=== PATIENT | male | born 1970 | race Caucasian/White ===

== ENCOUNTER 2018-07-27 04:19 | Inpatient (IN) | payer MEDICAID, OTHER ==
[~2018-07-27] VITALS: Ht 175.3 cm; Wt 63.5 kg
[2018-07-27] VITALS (7 sets, daily range): BP systolic 109–152; BP diastolic 62–95
--- NOTE | 2018-07-27 04:30 | NUR ---
ED Nurse Note: Pt arrived ED from home, c/o abdominal pain today, pain 8/10. Pt is A/O x4, vital signs stable at this time. Dr. Gerber at bed side, waiting for orders.
--- NOTE | 2018-07-27 04:34 | Emergency Room Report ---
History of Present Illness General Chief Complaint: Abdominal Pain Source: Friend Present Illness HPI Patient is a 47-year-old male presented after increased bilateral lower abdominal pain. Patient was noted to have worsening symptoms over the past 2 weeks. He denies any current medications for HIV but had prior history. Patient states he is currently taking Diflucan for thrush. Reports having increased generalized lower abdominal pain associated with some bilateral flank pain. Allergies: Coded Allergies: No Known Allergies (Unverified , 07/27/18) Patient History Past Medical History: see triage record Reviewed Nursing Documentation: PMH: Agreed; PSxH: Agreed Nursing Documentation-PMH Past Medical History: No History, Except For Hx Neurological Problems: No - Hip replacement Review of Systems All Other Systems: limited Physical Exam Sp02 EP Interpretation: reviewed, normal General Appearance: normal inspection, well appearing, no apparent distress, alert, GCS 15, Chronically Ill Head: atraumatic ENT: normal ENT inspection, hearing grossly normal, normal voice Neck: normal inspection, full range of motion, supple, no bony tend Respiratory: normal inspection, lungs clear, normal breath sounds, no respiratory distress, no retraction, no wheezing Cardiovascular #1: regular rate, rhythm, no edema Gastrointestinal: normal inspection, normal bowel sounds, non tender, soft, no guarding, no hernia Genitourinary: no CVA tenderness Musculoskeletal: decreased range of motion Neurologic: normal inspection, alert, responsive, speech normal Psychiatric: normal inspection, judgement/insight normal, mood/affect normal Skin: normal inspection, normal color, no rash Medical Decision Making ER Course Patient presented for abdominal pain. Differential diagnoses included ischemic bowel, appendicitis, perforated viscus, abdominal aortic aneurysm, inferior myocardial infarction, viral gastroenteritis among others. Because of complexity of patient's case laboratory testing and imaging studies were ordered.Laboratory testing was notable for some mild leukopenia. Patient was also noted to have hypocalcemia. Patient was given IV fluids. Labs Test 07/27/18 04:45 07/27/18 04:47 White Blood Count 3.2 K/UL (4.8-10.8) Red Blood Count 3.42 M/UL (4.70-6.10) Hemoglobin 13.2 G/DL (14.2-18.0) Hematocrit 31.1 % (42.0-52.0) Mean Corpuscular Volume 91 FL (80-99) Mean Corpuscular Hemoglobin 38.6 PG (27.0-31.0) Mean Corpuscular Hemoglobin Concent 42.4 G/DL (32.0-36.0) Red Cell Distribution Width 12.9 % (11.6-14.8) Platelet Count 166 K/UL (150-450) Mean Platelet Volume 6.5 FL (6.5-10.1) Neutrophils (%) (Auto) % (45.0-75.0) Lymphocytes (%) (Auto) % (20.0-45.0) Monocytes (%) (Auto) % (1.0-10.0) Eosinophils (%) (Auto) % (0.0-3.0) Basophils (%) (Auto) % (0.0-2.0) Sodium Level 142 MMOL/L (136-145) Potassium Level 3.5 MMOL/L (3.5-5.1) Chloride Level 109 MMOL/L (98-107) Carbon Dioxide Level 24 MMOL/L (21-32) Anion Gap 9 mmol/L (5-15) Blood Urea Nitrogen 14 mg/dL (7-18) Creatinine 0.8 MG/DL (0.55-1.30) Estimat Glomerular Filtration Rate > 60 mL/min (>60) Glucose Level 133 MG/DL (74-106) Calcium Level 7.7 MG/DL (8.5-10.1) Magnesium Level 1.9 MG/DL (1.8-2.4) Total Bilirubin 0.7 MG/DL (0.2-1.0) Aspartate Amino Transf (AST/SGOT) 5 U/L (15-37) Alanine Aminotransferase (ALT/SGPT) < 6 U/L (12-78) Alkaline Phosphatase 115 U/L (46-116) Troponin I 0.015 ng/mL (0.000-0.056) Total Protein 8.3 G/DL (6.4-8.2) Albumin 3.2 G/DL (3.4-5.0) Globulin 5.1 g/dL Lipase 373 U/L (73-393) EKG Diagnostic Results Rate: normal Rhythm: NSR ST Segments: no acute changes Jt Gerber MD Jul 27, 2018 04:34
[2018-07-27] MEDS ORDERED: Morphine Sulfate 4mg/ml Inj (IV/IM USE ONLY) IVP ONE (04:45)
[2018-07-27] MEDS ORDERED: Isovue-300 100ml vial INJ PRN (04:45)
[2018-07-27] MEDS ORDERED: Dicyclomine HCl 10mg/5ml oral soln ORAL ONE (04:45)
--- NOTE | 2018-07-27 04:50 | NUR ---
ED Nurse Note: Blood and urine sample collected and sent to lab.
--- NOTE | 2018-07-27 05:01 | NUR ---
ED Nurse Note: Pain Meds given as ordered.
[2018-07-27 05:22] LABS: HEMATOCRIT 31.1 % (42.0-52.0); HEMOGLOBIN 13.2 G/DL (14.2-18.0); MEAN CORPUSCULAR VOLUME 91 FL (80-99); PLATELET COUNT 166 K/UL (150-450); RED BLOOD COUNT 3.42 M/UL (4.70-6.10); RED CELL DISTRIBUTION WIDTH 12.9 % (11.6-14.8); WHITE BLOOD COUNT 3.2 K/UL (4.8-10.8)
[2018-07-27 05:33] LABS: APPEARANCE,URINE CLEAR; BILIRUBIN, URINE NEGATIVE (NEGATIVE); COLOR,URINE PALE YELLOW; GLUCOSE, URINE (UA) NEGATIVE (NEGATIVE); KETONES,URINE NEGATIVE (NEGATIVE); LEUKOCYTE ESTERASE ,URINE NEGATIVE (NEGATIVE); NITRITE,URINE NEGATIVE (NEGATIVE); PH,URINE 6 (4.5-8.0); PROTEIN,URINE NEGATIVE (NEGATIVE); UROBILINOGEN,URINE NORMAL MG/DL (0.0-1.0)
[2018-07-27 05:38] LABS: ANION GAP 9 mmol/L (5-15); BLOOD UREA NITROGEN 14 mg/dL (7-18); CALCIUM 7.7 MG/DL (8.5-10.1); CARBON DIOXIDE 24 MMOL/L (21-32); CHLORIDE 109 MMOL/L (98-107); CREATININE 0.8 MG/DL (0.55-1.30); POTASSIUM 3.5 MMOL/L (3.5-5.1); SODIUM 142 MMOL/L (136-145)
[2018-07-27 05:42] LABS: ALANINE AMINOTRANSFERASE < 6 U/L (12-78); ALBUMIN 3.2 G/DL (3.4-5.0); ALKALINE PHOSPHATASE 115 U/L (46-116); ASPARTATE AMINO TRANSFERASE 5 U/L (15-37); BILIRUBIN,TOTAL 0.7 MG/DL (0.2-1.0)
--- NOTE | 2018-07-27 06:05 | NUR ---
ED Nurse Note: Pt was sent down for CT.
[2018-07-27 07:02] LABS: INR 0.9 (0.9-1.1)
--- NOTE | 2018-07-27 07:20 | NUR ---
HAND-OFF: Report given to Jnah/RN for continue care.
[2018-07-27] MEDS ORDERED: Miralax 17gm pkt ORAL PRN (07:30)
[2018-07-27] MEDS ORDERED: Metoclopramide 10mg/2ml Inj IVP PRN (07:30)
[2018-07-27] MEDS ORDERED: Promethazine HCl 25 MG in NS 55 ML IV PRN (07:30)
[2018-07-27] MEDS ORDERED: LORazepam Inj 2mg/ml 1ml IV PRN (07:30)
[2018-07-27] MEDS ORDERED: Mylanta II UD 30ml ORAL PRN (07:30)
[2018-07-27] MEDS ORDERED: Promethazine HCl 12.5 MG in NS 55 ML IV PRN (07:30)
[2018-07-27] MEDS ORDERED: Nitroglycerin Subl 0.4mg tab SL PRN (07:30)
--- NOTE | 2018-07-27 07:45 | NUR ---
ED Nurse Note: Received pt in bed. pt aao x4 and requested to go to bathroom alone. pt has unsteady gait so assisted with urinal and urinated pale yellow urine in urinal at bedside. skin intact, c/o abdominal pain 4/10 but able to tolerate without medication per pt. VSS and no s/s of cardiac or pulmonary distress.
--- NOTE | 2018-07-27 08:31 | NUR ---
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 currently. primary rn and pharmacy notified.
--- NOTE | 2018-07-27 08:40 | NUR ---
ED Nurse Note: pt was transferred to inpatient bed in ER by 1 coding tech and 1 RN.
[2018-07-27] MEDS: D5 1/2NS 1,000 ML IV SCH ×2 (08:43→20:35)
--- NOTE | 2018-07-27 08:43 | NUR ---
ED Nurse Note: D5 1/2 NS order has been verified and initianted.
[2018-07-27] MEDS: Pantoprazole Inj IV SCH (08:50)
[2018-07-27] MEDS: Heparin 5000 units/ml inj SUBQ SCH ×2 (08:52→20:36)
--- NOTE | 2018-07-27 08:58 | NUR ---
ED Nurse Note: pt requested a cup of water and informed that pt is NPO and verbalized understanding.
--- NOTE | 2018-07-27 09:57 | Diagnostic Imaging Report ---
Indication: Abdominal pain Technique: Continuous helical transaxial imaging of the abdomen and pelvis was obtained from the lung bases to the pubic symphysis during intravenous contrast administration. Coronal 2-D reformats were also obtained. Study obtained in a Siemens sensation [address] Automatic Exposure Control was utilized. Total Dose length Product (DLP): 513.[address] Dose Index Volume (CTDIvol): 10.48 mGy Comparison: None Findings: Lung bases are clear. There is a small hiatal hernia. Liver and spleen are unremarkable. Pancreas unremarkable. Kidneys and gallbladder are unremarkable. There are tiny bilateral renal cysts are demonstrated. Appendix is normal. Left total hip prosthetic noted. The right femoral head is abnormal with subchondral lucencies, deformity of the femoral head collapse. Findings suspicious for advanced AVN. Correlate clinically. Note the preliminary reading stated some suspicion of biliary disease dilatation. Correlate clinically and evaluate further as needed. IMPRESSION: No acute findings. Advance AVN of the right hip. Left hip prosthesis. Tiny bilateral renal cysts. Question of a CBD dilatation. Correlate clinically and evaluate further as needed The CT scanner at [facility] is accredited by the [employer] and the scans are performed using dose optimization techniques as appropriate to a performed exam including Automatic Exposure control.
--- NOTE | 2018-07-27 10:24 | NUR ---
ED Nurse Note: pt c/o severe abdominal pain 7/10 and 2mg of morphine ivp was given.
[2018-07-27] MEDS: Morphine Sulfate 2mg/ml Inj IVP PRN ×2 (10:27→15:36)
--- NOTE | 2018-07-27 13:02 | Consultation ---
History of Present Illness General Date patient seen: Jul 27, 2018 Chief Complaint: Abdominal Pain Reason for Consultation: HIV Present Illness HPI Mr. Waller is a 47 yo male with PMHx of HIV off meds who presented to the ED on 07/27/18 with abdominal pain. He reports that the pain has been present for about 2 months. It is burning in nature with intermittent sharp moments. It feel superficial like it is in his skin or nerve. The pain has been getting worse. It is not associated with any thing that he can think of. He has no n/v/d /c or abdominal pain, No dysuria, no hematuria, No SOB, no cp. No bleeding. He has been off his HIV meds for about 2 years last CD4 count that he remembers was 50 (not sure when it was done. He has been on fluconazole for thrush. When to [facility]. They gave him genvoya and bactrim. He has not taken either. In the ED he was found to be afebrile and to have no leukocytosis. He had a CT scan of his abdomen it show possible CBC dilatation but no acute findings. ID consulted for HIV PMHx/PSHx HIV Left hip prosthesis SocHx Has not been sexually active for years Homeless FamHx Not contributory Allergies: Coded Allergies: No Known Allergies (Unverified , 07/27/18) Medication History No Active Prescriptions or Reported Meds Patient History Healthcare decision maker Resuscitation status Advanced Directive on File Review of Systems ROS Narrative 12 point ROS negative except as note in the HPI. Physical Exam Last 24 Hour Vital Signs Date Time Temp Pulse Resp B/P (MAP) Pulse Ox O2 Delivery O2 Flow Rate FiO2 07/27/18 11:31 Room Air 07/27/18 11:28 98.1 92 16 109/79 100 Room Air 07/27/18 10:57 98.3 07/27/18 09:41 82 07/27/18 09:31 Room Air 07/27/18 07:44 98.3 92 22 126/92 100 Room Air 07/27/18 05:30 97.0 07/27/18 04:30 91 14 Room Air 07/27/18 04:30 97.5 91 14 132/95 98 Room Air 07/27/18 04:19 97.0 91 14 133/94 98 Room Air Intake and Output 07/26/18 07/27/18 18:59 06:59 Intake Total 600 ml Output Total 120 ml Balance 480 ml Intake Oral 100 ml IV Total 500 ml Output Urine Total 120 ml Laboratory Tests Test 07/27/18 04:45 07/27/18 04:47 Urine Color Pale yellow Urine Appearance Clear Urine pH 6 (4.5-8.0) Urine Specific [place] 1.020 (1.005-1.035) Urine Protein Negative (NEGATIVE) Urine Glucose (UA) Negative (NEGATIVE) Urine Ketones Negative (NEGATIVE) Urine Blood Negative (NEGATIVE) Urine Nitrite Negative (NEGATIVE) Urine Bilirubin Negative (NEGATIVE) Urine Urobilinogen Normal MG/DL (0.0-1.0) Urine Leukocyte Esterase Negative (NEGATIVE) White Blood Count 3.2 K/UL (4.8-10.8) L Red Blood Count 3.42 M/UL (4.70-6.10) L Hemoglobin 13.2 G/DL (14.2-18.0) L Hematocrit 31.1 % (42.0-52.0) L Mean Corpuscular Volume 91 FL (80-99) Mean Corpuscular Hemoglobin 38.6 PG (27.0-31.0) H Mean Corpuscular Hemoglobin Concent 42.4 G/DL (32.0-36.0) H Red Cell Distribution Width 12.9 % (11.6-14.8) Platelet Count 166 K/UL (150-450) Mean Platelet Volume 6.5 FL (6.5-10.1) Neutrophils (%) (Auto) % (45.0-75.0) Lymphocytes (%) (Auto) % (20.0-45.0) Monocytes (%) (Auto) % (1.0-10.0) Eosinophils (%) (Auto) % (0.0-3.0) Basophils (%) (Auto) % (0.0-2.0) Prothrombin Time 9.9 SEC (9.30-11.50) Prothromb Time International Ratio 0.9 (0.9-1.1) Activated Partial Thromboplast Time 27 SEC (23-33) Sodium Level 142 MMOL/L (136-145) Potassium Level 3.5 MMOL/L (3.5-5.1) Chloride Level 109 MMOL/L (98-107) H Carbon Dioxide Level 24 MMOL/L (21-32) Anion Gap 9 mmol/L (5-15) Blood Urea Nitrogen 14 mg/dL (7-18) Creatinine 0.8 MG/DL (0.55-1.30) Estimat Glomerular Filtration Rate > 60 mL/min (>60) Glucose Level 133 MG/DL (74-106) H Calcium Level 7.7 MG/DL (8.5-10.1) L Magnesium Level 1.9 MG/DL (1.8-2.4) Total Bilirubin 0.7 MG/DL (0.2-1.0) Aspartate Amino Transf (AST/SGOT) 5 U/L (15-37) L Alanine Aminotransferase (ALT/SGPT) < 6 U/L (12-78) L Alkaline Phosphatase 115 U/L (46-116) Troponin I 0.015 ng/mL (0.000-0.056) Total Protein 8.3 G/DL (6.4-8.2) H Albumin 3.2 G/DL (3.4-5.0) L Globulin 5.1 g/dL Lipase 373 U/L (73-393) Height (Feet): 5 Height (Inches): 9.00 Weight (Pounds): 140 Medications Current Medications Medications (Trade) Dose Ordered Sig/Danny Route PRN Reason Start Time Stop Time Status Last Admin Dose Admin Acetaminophen (Tylenol) 650 mg Q4H PRN ORAL fever 07/27/18 07:30 08/26/18 07:29 Al Hydroxide/Mg Hydroxide (Mylanta II) 30 ml Q6H PRN ORAL dyspepsia 07/27/18 07:30 08/26/18 07:29 Dextrose (Dextrose 50%) 25 ml Q30M PRN IV Hypoglycemia 07/27/18 07:30 08/26/18 07:29 Dextrose (Dextrose 50%) 50 ml Q30M PRN IV Hypoglycemia 07/27/18 07:30 08/26/18 07:29 Dextrose/Sodium Chloride 1,000 ml @ 75 mls/hr [id number] IV 07/27/18 07:17 08/26/18 07:16 07/27/18 08:43 Diphenhydramine HCl (Benadryl) 25 mg Q6H PRN ORAL Itching/Pruritis 07/27/18 07:30 08/26/18 07:29 Heparin Sodium (Porcine) (Heparin 5000 units/ml) 5,000 units EVERY 12 HOURS SUBQ 07/27/18 09:00 08/26/18 08:59 07/27/18 08:52 Iopamidol (Isovue-300 100ml) 100 ml NOW PRN INJ Radiology Procedure 07/27/18 04:45 Lorazepam (Ativan 2mg/ml 1ml) 1 mg Q4H PRN IV agitation 07/27/18 07:30 08/03/18 07:29 Metoclopramide HCl (Reglan) 10 mg Q6H PRN IVP servere nauasea 07/27/18 07:30 08/26/18 07:29 Morphine Sulfate (Morphine Sulfate) 2 mg Q4H PRN IVP severe Pain (Pain Scale 7-10) 07/27/18 07:30 08/03/18 07:29 07/27/18 10:27 Nitroglycerin (Ntg) 0.4 mg Q5M X 3 DOSES PRN SL Prn Chest Pain 07/27/18 07:30 08/26/18 07:29 Ondansetron HCl (Zofran) 4 mg Q6H PRN IVP Nausea & Vomiting 07/27/18 07:30 08/26/18 07:29 Pantoprazole (Protonix) 40 mg DAILY IV 07/27/18 09:00 08/26/18 08:59 07/27/18 08:50 Polyethylene Glycol (Miralax) 17 gm HSPRN PRN ORAL Constipation 07/27/18 07:30 08/26/18 07:29 Promethazine HCl (Phenergan) 25 mg Q6H PRN IM REFRACTORY N/V 07/27/18 08:30 08/26/18 08:29 Temazepam (Restoril) 15 mg HSPRN PRN ORAL Insomnia 07/27/18 07:30 08/03/18 07:29 Objective Narrative Gen: NAD, Thin male HEENT: NCAT, MMM, EOMI, PERRL, oral thrush, no scleral icterus NECK: full range of motion, supple, no meningismus, No LAD, No JVD LUNGS: CTAB, No W/C, No Accessory muscle use CARDS: RRR, S1, S2, No M/R/G, ABD: Soft, NT, ND, No R/G, + BS, No HSM, No Masses : Deferred Ext: C/C/E, Pulses 2+ B/L (DP, Rad): NEURO: A/O x 4, Strength and Sensation Grossly intact PSYCH: Mood/affect normal SKIN: Warm/dry, No rashes Assessment/Plan Assessment/Plan 47 yo male with PMHx of HIV off meds who presented to the ED on 07/27/18 with abdominal pain. Abdominal burning Infection unlikely - Nerve pains? HIV? CT essentially negative for intraabdominal process CT Abd/Pel 07/27/18 - No acute findings. Advance AVN of the right hip. Left hip prosthesis. Tiny bilateral renal cysts. Question of a CBD dilatation. Correlate clinically and evaluate further as needed No leukocytosis No fevers No diarrhea or constipation HIV Dx 2002 Last CD4 about 50, Unknown VL - Off meds for over 2 year - [facility] Oral thrush On fluconazole AVN right hip Left hip prosthesis PLAN - Monitor clinically for improvement of abdominal pain - Continue Bactrim DS Qday for PPx - Continue fluconazole for thrush - f/u cultures - check GC/Ch in urine - monitor CBC and Temps Thank you for this consult. We will continue to follow the patient during this hospitalization. Joey Mattson MD Jul 27, 2018 13:02
--- NOTE | 2018-07-27 13:07 | Diagnostic Imaging Report ---
Indication:Abdominal pain Technique: Grayscale and duplex Doppler imaging of the abdomen performed. Comparison: None Findings: The liver is unremarkable. The gallbladder is contracted and not evaluated well. Tiny cyst in the right kidney measuring 7 mm noted. The demonstrated part of the pancreas, aorta and IVC show no abnormalities. Both kidneys appear unremarkable. The spleen is normal in size. There is no biliary ductal dilatation identified. Doppler evaluation of the main portal vein shows patency. There is no ascites. No hydronephrosis seen. CBD is 5 mm Impression: No acute findings. Tiny right renal cyst. Gallbladder contracted and not evaluated well
--- NOTE | 2018-07-27 14:44 | NUR ---
ED Nurse Note: attempted giving report, unable to give report at this time per charge nurse, no nurse can take pt at this time.
[2018-07-27] MEDS ORDERED: Bactrim-DS 1 tab ORAL SCH (15:00)
[2018-07-27] MEDS ORDERED: Fluconazole 100mg tab ORAL SCH (15:00)
--- NOTE | 2018-07-27 15:03 | NUR ---
ED Nurse Note: GAURAV Tinoco received report. pt is ready to be transferred.
--- NOTE | 2018-07-27 15:09 | NUR ---
ED Nurse Note: pt left department with 1 warehousing technician and 1 RN in stable condition.
--- NOTE | 2018-07-27 15:25 | NUR ---
NURSE NOTES: Pt was admitted to Tele from ER via hospital bed. Tele monitor placed on pt, displays NSR. Received report from Darrius NOLASCO over the phone, immediately prior to pt's arrival. Pt is awake, alert, oriented x4, on room air with no respiratory distress, reports chronic moderate to severe pain in the lower abdominal region, which pt's states has been present for a few months now, recently the pain has progressively worsened per pt, will administer next PRN morphine as ordered by Dr Metcalf. Skin is intact, with old healed scar from status post left hip replacement. IV access on left AC #20G infusing D5 0.45% NS at 75mL/hr. Admission orders in place by Dr Metcalf. Pt's belonging's list checked with the transferring nurse in front of the pt. Call light is placed within easy reach, bed in lowest position, two side rails up, brakes engaged, urinal at bedside. Pt is placed on NPO per MD. Pt is inquiring about receiving a meal, explained to pt the NPO order, pending diet advancement by Dr Metcalf, pt verbalized understanding. Addendum: 07/27/18 at 1752 by JAYLA CHAVEZ RN Pt states he was given assistive devices for ambulation, however he has misplaced them, and therefore has not used any assistive devices for a while. On continuous Morphine for severe pain, pt is weak and unsteady, placed on fall precaution.
--- NOTE | 2018-07-27 17:45 | History and Physical Report ---
DATE OF ADMISSION: 07/27/2018 TIME SEEN: 1 p.m. CONSULTANTS: 1. Serjio Bustillos M.D. 2. Benji Maldonado M.D. 3. Matthias Bianchi M.D. 4. Bunny Cartagena M.D. CHIEF COMPLAINT: Abdominal pain, weakness, HIV, leukopenia, and hypocalcemia. BRIEF HISTORY: This is a 47-year-old male, who lives at home and presented with above-mentioned diagnoses. He came to [facility], diagnosed with the above. In the ER currently with slight abdominal pain and discomfort, awaiting admission. Currently, calm in bed, slight abdominal pain, slight nausea. No vomiting. PAST MEDICAL HISTORY: HIV. PAST SURGICAL HISTORY: Left hip. ALLERGIES: Denies. MEDICATIONS: Heparin, pantoprazole, Phenergan, morphine, polyethylene glycol, Zofran, temazepam, and diphenhydramine. SOCIAL HISTORY: No smoking. Occasional alcohol. No intravenous drug abuse. FAMILY HISTORY: Noncontributory. PHYSICAL EXAMINATION: GENERAL: Calm in bed, oriented x3, in no acute distress. VITAL SIGNS: Temperature 98 degrees, pulse 92, respirations 16, and blood pressure 109/79. CARDIOVASCULAR: No murmurs. LUNGS: Distant and clear. ABDOMEN: Bowel sounds positive. Nontender. Nondistended. EXTREMITIES: No cyanosis, clubbing, or edema. NEUROLOGIC: Patient moves all extremities, slightly weak. LABORATORY AND DIAGNOSTIC DATA: White count 3.2, H and H of , otherwise CBC is normal. BMP shows chloride 109, glucose 133, calcium 7.7. AST 5, ALT less than 6. Troponin 0.015. ASSESSMENT: Abdominal pain, weakness, human immunodeficiency virus, leukopenia, anemia, and hypocalcemia. PLAN: 1. NPO. 2. IV fluid. 3. Anti-emetic. 4. Pain control. 5. GI followup. 6. Dietary followup. 7. CBC and BMP in the morning. Lauri Metcalf D.O. DR: ADALI JOB#: [id number] CC:
--- NOTE | 2018-07-27 19:27 | NUR ---
HAND-OFF: Report given to Korina NOLASCO. Pt is resting in bed in stable condition. Endorsed plan of care.
--- NOTE | 2018-07-27 19:30 | NUR ---
NURSE NOTES: Received patient from GAURAV Tinoco. Patient awake, alert and verbally responsive. No SOB, no acute distress, no s/sx of pain nor any discomfort at this time. IV site R AC #20, patent and intact connected to D5 1/2 NS at 75cc/hr. Bed at lowest position, call light within reach. Will continue plan of care.
[2018-07-28] VITALS: BP 125/78
--- NOTE | 2018-07-28 03:04 | NUR ---
NURSE NOTES: Patient asleep, breathing even and unlabored, no s/sx of pain nor any discomfort at this time. Remains sinus rhythm on cardiac sonographer. D5 1/2 NS continuously running at 75 cc/hr, tolerating fairly. Will continue to monitor.
[2018-07-28 04:00] VITALS: BP 115/78
--- NOTE | 2018-07-28 07:05 | NUR ---
NURSE NOTES: Received report from Korina NOLASCO. Pt is asleep in bed, awakens to name/voice, oriented x4. Reports pain in the lower abdominal region, refuses PRN pain med at this time. On room air with no respiratory distress. IV access on Right AC #20G infusing D5 0.45% NS at 75mL/hour. Skin is intact. Pt is on fall precautions, history of left hip replacement, does not use any assistive devices given to him post surgery, has unsteady gait. Call light within reach, bed in lowest position, two side rails up, brakes engaged, alarm on. NPO diet. Pt refused blood draw this morning, will attempt again later this morning.
--- NOTE | 2018-07-28 07:13 | NUR ---
HAND-OFF: Report given to GAURAV Tinoco. Endorsed that pt refused blood draw, will try again later.
[2018-07-28 08:00] VITALS: BP 118/78
[2018-07-28] MEDS ORDERED: Fluconazole 100mg tab ORAL SCH (09:00)
[2018-07-28] MEDS: Pantoprazole Inj IV SCH (09:00)
[2018-07-28] MEDS ORDERED: Bactrim-DS 1 tab ORAL SCH (09:00)
[2018-07-28] MEDS: Heparin 5000 units/ml inj SUBQ SCH (09:00)
[2018-07-28] MEDS: D5 1/2NS 1,000 ML IV SCH (09:20)
--- NOTE | 2018-07-28 09:38 | NUR ---
NURSE NOTES: Pt refused labs this morning x2. Dr Metcalf notified.
--- NOTE | 2018-07-28 09:57 | Infectious Diseases Prog Note ---
Assessment/Plan Assessment/Plan 47 yo male with PMHx of HIV off meds who presented to the ED on 07/27/18 with abdominal pain. Abdominal burning Infection unlikely - Nerve pains? HIV? CT essentially negative for intraabdominal process CT Abd/Pel 07/27/18 - No acute findings. Advance AVN of the right hip. Left hip prosthesis. Tiny bilateral renal cysts. Question of a CBD dilatation. Correlate clinically and evaluate further as needed No leukocytosis No fevers No diarrhea or constipation HIV Dx 2002 Last CD4 about 50, Unknown VL - Off meds for over 2 year - [facility] Oral thrush On fluconazole AVN right hip Left hip prosthesis PLAN - Monitor clinically for improvement of abdominal pain - Continue Bactrim DS Qday for PPx - Continue fluconazole for thrush - f/u cultures - check GC/Ch in urine - monitor CBC and Temps Thank you for this consult. We will continue to follow the patient during this hospitalization. Subjective Allergies: Coded Allergies: No Known Allergies (Unverified , 07/27/18) Subjective Patient still with some stomach burning Afebrile No leukocytosis Objective Vital Signs Last 24 Hour Vital Signs Date Time Temp Pulse Resp B/P (MAP) Pulse Ox O2 Delivery O2 Flow Rate FiO2 07/28/18 09:00 Room Air 07/28/18 08:00 83 07/28/18 08:00 98.2 103 16 118/78 (91) 97 07/28/18 04:00 99.0 87 20 115/78 (90) 97 07/28/18 04:00 79 07/28/18 00:00 97.0 82 18 125/78 (94) 98 07/28/18 00:00 76 07/27/18 21:00 Room Air 07/27/18 20:00 82 07/27/18 20:00 98.7 84 17 152/92 (112) 99 07/27/18 16:06 98.2 07/27/18 16:00 98.1 89 22 115/76 (89) 100 07/27/18 16:00 82 07/27/18 15:25 Room Air 07/27/18 15:06 98.2 91 18 109/79 100 Room Air 07/27/18 15:06 98.2 91 18 109/79 100 Room Air 07/27/18 14:31 98.1 91 16 110/62 100 Room Air 07/27/18 11:31 Room Air 07/27/18 11:28 98.1 92 16 109/79 100 Room Air Height (Feet): 5 Height (Inches): 9.00 Weight (Pounds): 140 Objective Gen: NAD, Thin male HEENT: NCAT, MMM, EOMI LUNGS: CTAB, No W CARDS: RRR, S1, S2, No M/R/G, ABD: Soft, NT, ND, + BS NEURO: A/O x 4 Current Medications Medications (Trade) Dose Ordered Sig/Danny Route PRN Reason Start Time Stop Time Status Last Admin Dose Admin Acetaminophen (Tylenol) 650 mg Q4H PRN ORAL fever 07/27/18 07:30 08/26/18 07:29 Al Hydroxide/Mg Hydroxide (Mylanta II) 30 ml Q6H PRN ORAL dyspepsia 07/27/18 07:30 08/26/18 07:29 Dextrose (Dextrose 50%) 25 ml Q30M PRN IV Hypoglycemia 07/27/18 07:30 08/26/18 07:29 Dextrose (Dextrose 50%) 50 ml Q30M PRN IV Hypoglycemia 07/27/18 07:30 08/26/18 07:29 Dextrose/Sodium Chloride 1,000 ml @ 75 mls/hr [id number] IV 07/27/18 07:17 08/26/18 07:16 07/28/18 09:20 Diphenhydramine HCl (Benadryl) 25 mg Q6H PRN ORAL Itching/Pruritis 07/27/18 07:30 08/26/18 07:29 Fluconazole (Diflucan) 200 mg DAILY ORAL 07/28/18 09:00 08/04/18 08:59 07/28/18 09:16 Heparin Sodium (Porcine) (Heparin 5000 units/ml) 5,000 units EVERY 12 HOURS SUBQ 07/27/18 09:00 08/26/18 08:59 07/27/18 20:36 Iopamidol (Isovue-300 100ml) 100 ml NOW PRN INJ Radiology Procedure 07/27/18 04:45 07/29/18 04:44 Lorazepam (Ativan 2mg/ml 1ml) 1 mg Q4H PRN IV agitation 07/27/18 07:30 08/03/18 07:29 Metoclopramide HCl (Reglan) 10 mg Q6H PRN IVP servere nauasea 07/27/18 07:30 08/26/18 07:29 Morphine Sulfate (Morphine Sulfate) 2 mg Q4H PRN IVP severe Pain (Pain Scale 7-10) 07/27/18 07:30 08/03/18 07:29 07/27/18 15:36 Nitroglycerin (Ntg) 0.4 mg Q5M X 3 DOSES PRN SL Prn Chest Pain 07/27/18 07:30 08/26/18 07:29 Ondansetron HCl (Zofran) 4 mg Q6H PRN IVP Nausea & Vomiting 07/27/18 07:30 08/26/18 07:29 Pantoprazole (Protonix) 40 mg DAILY IV 07/27/18 09:00 08/26/18 08:59 07/27/18 08:50 Polyethylene Glycol (Miralax) 17 gm HSPRN PRN ORAL Constipation 07/27/18 07:30 08/26/18 07:29 Promethazine HCl (Phenergan) 25 mg Q6H PRN IM REFRACTORY N/V 07/27/18 08:30 08/26/18 08:29 Temazepam (Restoril) 15 mg HSPRN PRN ORAL Insomnia 07/27/18 07:30 08/03/18 07:29 Trimethoprim/ Sulfamethoxazole (Bactrim-DS) 1 tab DAILY ORAL 07/28/18 09:00 08/04/18 08:59 07/28/18 09:16 Joey Mattson MD Jul 28, 2018 09:57
--- NOTE | 2018-07-28 10:44 | Consultation ---
Consult Note Consult Note asked to eval for low Ca Patient is a 47-year-old male presented after increased bilateral lower abdominal pain. Patient was noted to have worsening symptoms over the past 2 weeks. He denies any current medications for HIV but had prior history. Patient states he is currently taking Diflucan for thrush. Reports having increased generalized lower abdominal pain associated with some bilateral flank pain. interviewed examined data reviewed . Assessment/Plan Abdominal pain, weakness, human immunodeficiency virus, leukopenia, anemia, and hypocalcemia. recheck Ca and Phos furthercomments based on the resultas Benji Maldonado MD Jul 28, 2018 10:44
--- NOTE | 2018-07-28 11:53 | Consultation ---
History of Present Illness General Date patient seen: Jul 28, 2018 Chief Complaint: Abdominal Pain Reason for Consultation: HIV Present Illness HPI 47-year-old male with hx of HIV, psychosis presented to ER with CC of lower abdominal pain, worsening over the past 2 weeks. He thinks the pain is coming from his right hip. Allergies: Coded Allergies: No Known Allergies (Unverified , 07/27/18) Medication History No Active Prescriptions or Reported Meds Patient History Healthcare decision maker Resuscitation status Full Code Advanced Directive on File Past Medical/Surgical History Past Medical/Surgical History: (1) HIV disease Review of Systems Constitutional: Reports: no symptoms Hematologic/Lymphatic: Reports: no symptoms Physical Exam General Appearance: cachetic Lines, tubes and drains: peripheral HEENT: normocephalic, atraumatic Neck: non-tender, supple Respiratory/Chest: chest wall non-tender, lungs clear Breasts: no masses Cardiovascular/Chest: normal rate Abdomen: non tender, abnormal bowel sounds Genitourinary/Rectal: normal genital exam, normal rectal exam Last 24 Hour Vital Signs Date Time Temp Pulse Resp B/P (MAP) Pulse Ox O2 Delivery O2 Flow Rate FiO2 07/28/18 09:00 Room Air 07/28/18 08:00 83 07/28/18 08:00 98.2 103 16 118/78 (91) 97 07/28/18 04:00 99.0 87 20 115/78 (90) 97 07/28/18 04:00 79 07/28/18 00:00 97.0 82 18 125/78 (94) 98 07/28/18 00:00 76 07/27/18 21:00 Room Air 07/27/18 20:00 82 07/27/18 20:00 98.7 84 17 152/92 (112) 99 07/27/18 16:06 98.2 07/27/18 16:00 98.1 89 22 115/76 (89) 100 07/27/18 16:00 82 07/27/18 15:25 Room Air 07/27/18 15:06 98.2 91 18 109/79 100 Room Air 07/27/18 15:06 98.2 91 18 109/79 100 Room Air 07/27/18 14:31 98.1 91 16 110/62 100 Room Air Intake and Output 07/27/18 07/28/18 19:00 07:00 Intake Total 375 ml 481 ml Output Total 200 ml 350 ml Balance 175 ml 131 ml IV Total 375 ml 481 ml Output Urine Total 200 ml 350 ml # Voids 3 1 Height (Feet): 5 Height (Inches): 9.00 Weight (Pounds): 140 Medications Current Medications Medications (Trade) Dose Ordered Sig/Danny Route PRN Reason Start Time Stop Time Status Last Admin Dose Admin Acetaminophen (Tylenol) 650 mg Q4H PRN ORAL fever 07/27/18 07:30 08/26/18 07:29 Dextrose (Dextrose 50%) 25 ml Q30M PRN IV Hypoglycemia 07/27/18 07:30 08/26/18 07:29 Dextrose (Dextrose 50%) 50 ml Q30M PRN IV Hypoglycemia 07/27/18 07:30 08/26/18 07:29 Dextrose/Sodium Chloride 1,000 ml @ 75 mls/hr [id number] IV 07/27/18 07:17 08/26/18 07:16 07/28/18 09:20 Diphenhydramine HCl (Benadryl) 25 mg Q6H PRN ORAL Itching/Pruritis 07/27/18 07:30 08/26/18 07:29 Fluconazole (Diflucan) 200 mg DAILY ORAL 07/28/18 09:00 08/04/18 08:59 07/28/18 09:16 Heparin Sodium (Porcine) (Heparin 5000 units/ml) 5,000 units EVERY 12 HOURS SUBQ 07/27/18 09:00 08/26/18 08:59 07/27/18 20:36 Iopamidol (Isovue-300 100ml) 100 ml NOW PRN INJ Radiology Procedure 07/27/18 04:45 07/29/18 04:44 Lorazepam (Ativan 2mg/ml 1ml) 1 mg Q4H PRN IV agitation 07/27/18 07:30 08/03/18 07:29 Metoclopramide HCl (Reglan) 10 mg Q6H PRN IVP servere nauasea 07/27/18 07:30 08/26/18 07:29 Morphine Sulfate (Morphine Sulfate) 2 mg Q4H PRN IVP severe Pain (Pain Scale 7-10) 07/27/18 07:30 08/03/18 07:29 07/27/18 15:36 Nitroglycerin (Ntg) 0.4 mg Q5M X 3 DOSES PRN SL Prn Chest Pain 07/27/18 07:30 08/26/18 07:29 Ondansetron HCl (Zofran) 4 mg Q6H PRN IVP Nausea & Vomiting 07/27/18 07:30 08/26/18 07:29 Pantoprazole (Protonix) 40 mg DAILY IV 07/27/18 09:00 08/26/18 08:59 07/27/18 08:50 Polyethylene Glycol (Miralax) 17 gm HSPRN PRN ORAL Constipation 07/27/18 07:30 08/26/18 07:29 Promethazine HCl (Phenergan) 25 mg Q6H PRN IM REFRACTORY N/V 07/27/18 08:30 08/26/18 08:29 Temazepam (Restoril) 15 mg HSPRN PRN ORAL Insomnia 07/27/18 07:30 08/03/18 07:29 Trimethoprim/ Sulfamethoxazole (Bactrim-DS) 1 tab DAILY ORAL 07/28/18 09:00 08/04/18 08:59 07/28/18 09:16 Assessment/Plan Problem List: (1) Enteritis ICD Codes: K52.9 - Noninfective gastroenteritis and colitis, unspecified SNOMED: 82509910 (2) Abdominal pain ICD Codes: R10.9 - Unspecified abdominal pain SNOMED: 08256138 (3) HIV disease ICD Codes: B20 - Human immunodeficiency virus [HIV] disease SNOMED: 31076129 Assessment/Plan iv fluids GI evaluation ID evaluation check stool for O/P Serjio Bustillos MD Jul 28, 2018 11:53
[2018-07-28 12:00] VITALS: BP 115/73
--- NOTE | 2018-07-28 13:00 | NUR ---
NURSE NOTES: Pt refused STAT labs ordered by Dr Carter. Dr Bustillos notified. Addendum: 07/28/18 at 1512 by JAYLA CHAVEZ RN Dr Metcalf was notified initially, who referred to Dr Bustillos.
--- NOTE | 2018-07-28 13:40 | General Progress Note ---
Assessment/Plan Problem List: (1) Anemia ICD Codes: D64.9 - Anemia, unspecified SNOMED: 193948371 (2) Hip pain ICD Codes: M25.559 - Pain in unspecified hip SNOMED: 88016967 (3) HIV disease ICD Codes: B20 - Human immunodeficiency virus [HIV] disease SNOMED: 95070050 (4) Enteritis ICD Codes: K52.9 - Noninfective gastroenteritis and colitis, unspecified SNOMED: 50583986 (5) Abdominal pain ICD Codes: R10.9 - Unspecified abdominal pain SNOMED: 56112162 Status: stable, progressing Assessment/Plan abx pain control cbc bmp amdc if clear Subjective Constitutional: Reports: weakness Allergies: Coded Allergies: No Known Allergies (Unverified , 07/27/18) All Systems: reviewed and negative except above Subjective calm in bed wants to go home Objective Last 24 Hour Vital Signs Date Time Temp Pulse Resp B/P (MAP) Pulse Ox O2 Delivery O2 Flow Rate FiO2 07/28/18 12:00 85 07/28/18 12:00 97.9 98 16 115/73 (87) 99 07/28/18 09:00 Room Air 07/28/18 08:00 83 07/28/18 08:00 98.2 103 16 118/78 (91) 97 07/28/18 04:00 99.0 87 20 115/78 (90) 97 07/28/18 04:00 79 07/28/18 00:00 97.0 82 18 125/78 (94) 98 07/28/18 00:00 76 07/27/18 21:00 Room Air 07/27/18 20:00 82 07/27/18 20:00 98.7 84 17 152/92 (112) 99 07/27/18 16:06 98.2 07/27/18 16:00 98.1 89 22 115/76 (89) 100 07/27/18 16:00 82 07/27/18 15:25 Room Air 07/27/18 15:06 98.2 91 18 109/79 100 Room Air 07/27/18 15:06 98.2 91 18 109/79 100 Room Air 07/27/18 14:31 98.1 91 16 110/62 100 Room Air Intake and Output 07/27/18 07/28/18 19:00 07:00 Intake Total 375 ml 481 ml Output Total 200 ml 350 ml Balance 175 ml 131 ml IV Total 375 ml 481 ml Output Urine Total 200 ml 350 ml # Voids 3 1 Height (Feet): 5 Height (Inches): 9.00 Weight (Pounds): 140 General Appearance: alert EENT: normal ENT inspection Neck: normal alignment Cardiovascular: normal peripheral pulses, normal rate, regular rhythm Respiratory/Chest: chest wall non-tender, lungs clear, normal breath sounds Abdomen: normal bowel sounds, non tender, soft Extremities: normal inspection Edema: no edema noted Arm (L), no edema noted Arm (R), no edema noted Leg (L), no edema noted Leg (R), no edema noted Pedal (L), no edema noted Pedal (R), no edema noted Generalized Neurologic: responsive, motor weakness Skin: normal pigmentation, warm/dry Lauri Metcalf DO Jul 28, 2018 13:40
--- NOTE | 2018-07-28 13:45 | NUR ---
TRANSFER TO FLOOR: Patient transferred to 419-1 from Tele per MD order. Tele monitor removed and returned. Report given to Ilene NOLASCO. Belonging's list checked and signed with the receiving nurse in front of the pt. Skin is intact. Pt was transferred in stable condition, via hospital bed. Endorsed plan of care.
--- NOTE | 2018-07-28 13:49 | NUR ---
NURSE NOTES: Received report from GAURAV Tinoco. Pt transferred to [facility]- with all belongings. Pt in bed, awake, A/O x4, talkative, no distress noted, no complaints of pain, bed in lowest position, call light within reach.
[2018-07-28] MEDS ORDERED: BACTRIM-DS1 EA ORAL (13:55)
[2018-07-28] MEDS ORDERED: DIFLUCAN100 MG ORAL (13:55)
[2018-07-28] MEDS ORDERED: Nitroglycerin Subl 0.4mg tab SL PRN (14:15)
[2018-07-28] MEDS ORDERED: LORazepam Inj 2mg/ml 1ml IV PRN (14:30)
[2018-07-28] MEDS ORDERED: D5 1/2NS 1,000 ML IV SCH (14:30)
--- NOTE | 2018-07-28 14:55 | GI Initial Consult Note ---
History of Present Illness General Date patient seen: Jul 28, 2018 Time patient seen: 15:19 Reason for Hospitalization: Abdominal Pain Referring physician: ASRAH DE LEON Reason for Consultation: ABDOMINAL PAIN Present Illness HPI Patient is a 47-year-old male presented after increased bilateral lower abdominal pain. Patient was noted to have worsening symptoms over the past 2 weeks. He denies any current medications for HIV but had prior history. Patient states he is currently taking Diflucan for thrush. Reports having increased generalized lower abdominal pain associated with some bilateral flank pain. GI consulted for abdominal pain. Patient was seen, awake alert and oriented x4 no apparent distress. Denies any nausea vomiting or diarrhea. Patient states that he has no abdominal pain, states that his pain is actually from his hip. An abdominal pelvic CT was performed which was unremarkable. Negative abdominal ultrasound was also performed which was negative. Patient has history of HIV. No history of endoscopic or colonoscopy. Labs reviewed. Home Meds Active Scripts Trimethoprim/Sulfamethoxazole (Bactrim Ds Tablet) 1 Each Tablet, 1 TAB ORAL DAILY for 30 Days, TAB Prov:Serjio Bustillos MD 07/28/18 Fluconazole* (DIFLUCAN*) 100 Mg Tablet, 200 MG ORAL DAILY for 30 Days, TAB Prov:Serjio Bustillos MD 07/28/18 Med list reviewed/reconciled: Yes Allergies: Coded Allergies: No Known Allergies (Unverified , 07/27/18) Patient History History Provided By: Patient, Medical Record PMH Narrative Past Medical History: see triage record Reviewed Nursing Documentation: PMH: Agreed; PSxH: Agreed Nursing Documentation-PMH Past Medical History: No History, Except For Hx Neurological Problems: No - Hip replacement Social History: Denies: smoking, alcohol use, drug use, other Review of Systems All Other Systems: limited Physical Exam Vital Signs Date Time Temp Pulse Resp B/P (MAP) Pulse Ox O2 Delivery O2 Flow Rate FiO2 07/27/18 04:19 97.0 91 14 133/94 98 Room Air Sp02 EP Interpretation: reviewed, normal General Appearance: well appearing, no apparent distress, alert Head: normocephalic EENT: PERRL/EOMI, normal ENT inspection Neck: supple Respiratory: normal breath sounds, no respiratory distress Cardiovascular: normal rate Gastrointestinal: normal inspection, non tender, soft, normal bowel sounds, non -distended Rectal: deferred Genitourinary: deferred Musculoskeletal: normal inspection, back normal Neurologic: normal inspection, alert, oriented x3, responsive Psychiatric: normal inspection, judgement/insight normal, memory normal Skin: normal inspection, normal color, no rash, warm/dry, palpation normal, well hydrated Lymphatic: normal inspection, no adenopathy Current Medications Current Medications Medications (Trade) Dose Ordered Sig/Danny Route PRN Reason Start Time Stop Time Status Last Admin Dose Admin Acetaminophen (Tylenol) 650 mg Q4H PRN ORAL fever (temp>100.5F) 07/28/18 14:30 08/27/18 14:29 Dextrose (Dextrose 50%) 25 ml Q30M PRN IV Hypoglycemia 07/28/18 14:30 08/26/18 07:29 Dextrose (Dextrose 50%) 50 ml Q30M PRN IV Hypoglycemia 07/28/18 14:30 08/26/18 07:29 Dextrose/Sodium Chloride 1,000 ml @ 75 mls/hr [id number] IV 07/28/18 14:30 08/27/18 14:29 Diphenhydramine HCl (Benadryl) 25 mg Q6H PRN ORAL Itching/Pruritis 07/28/18 14:30 08/26/18 14:29 Fluconazole (Diflucan) 200 mg DAILY ORAL 07/29/18 09:00 08/04/18 08:59 Heparin Sodium (Porcine) (Heparin 5000 units/ml) 5,000 units EVERY 12 HOURS SUBQ 07/28/18 21:00 08/26/18 08:59 Iopamidol (Isovue-300 100ml) 100 ml NOW PRN INJ Radiology Procedure 07/29/18 04:45 07/30/18 04:45 Lorazepam (Ativan 2mg/ml 1ml) 1 mg Q4H PRN IV agitation 07/28/18 14:30 08/03/18 14:29 Metoclopramide HCl (Reglan) 10 mg Q6H PRN IVP servere nausea 07/28/18 19:30 08/26/18 07:29 Morphine Sulfate (Morphine Sulfate) 2 mg Q4H PRN IVP severe Pain (Pain Scale 7-10) 07/28/18 15:30 08/03/18 07:29 Nitroglycerin (Ntg) 0.4 mg Q5M X 3 DOSES PRN SL Prn Chest Pain 07/28/18 14:15 08/26/18 07:29 Ondansetron HCl (Zofran) 4 mg Q6H PRN IVP Nausea & Vomiting 07/28/18 14:30 08/26/18 14:29 Pantoprazole (Protonix) 40 mg DAILY IV 07/29/18 09:00 08/26/18 08:59 Polyethylene Glycol (Miralax) 17 gm HSPRN PRN ORAL Constipation 07/28/18 20:00 08/27/18 19:59 Promethazine HCl (Phenergan) 25 mg Q6H PRN IM REFRACTORY N/V 07/28/18 14:30 08/26/18 08:29 Temazepam (Restoril) 15 mg HSPRN PRN ORAL Insomnia 07/28/18 20:00 08/04/18 19:59 Trimethoprim/ Sulfamethoxazole (Bactrim-DS) 1 tab DAILY ORAL 07/29/18 09:00 08/04/18 08:59 GI: Plan Problems: (1) Anemia (2) Abdominal pain (3) Hip pain Plan Denies any abdominal pain Symptomatic treatment, no GI procedures at this time Advance diet Okay for DC per GI standpoint Needs follow-up with PCP Discussed with Dr. Cartagena. Thank you for this patient referral, we will follow. The patient was seen and examined at bedside and all new and available data was reviewed in the patients chart. I agree with the above findings, impression and plan. (Patient seen earlier today. Signature stamp does not reflect patient encounter time.). - MD Tiffany Mae,[facility] [employer] Jul 28, 2018 14:55
--- NOTE | 2018-07-28 15:07 | NUR ---
*-* INSURANCE *-* ALL CLINICALS HAVE BEEN FAXED TO: IPA: [facility] ADMISSION REPORTED TO JENNIFER [phone] TRACK#: [id number] NCM: PND F#: [phone] PLEASE FAX CLINICALS TO ABOVE # & PRE CERT T#: [phone] REVIEW CO: [employer] [facility] REPORTED TO: MONA DAVIS#: [id number] F#: [phone] PLEASE FAX CLINICALS TO ABOVE
[2018-07-28] MEDS ORDERED: Morphine Sulfate 2mg/ml Inj IVP PRN (15:30)
[2018-07-28 15:44] VITALS: BP 132/91
--- NOTE | 2018-07-28 17:01 | NUR ---
NURSE NOTES: Fluconazole Rx given to pt. Bactrim Rx sent electronically to [facility]. Called [facility] and confirmed Rx for Bactrim has been filled and ready for brain picker. Notified Pt.
--- NOTE | 2018-07-28 17:30 | NUR ---
NURSE NOTES: Pt discharged home with all belongings. IV removed, ID band removed, Pt provided with Taxi voucher to address of choice. All discharge paperwork reviewed and signed by pt. Pt stable for discharge
[2018-07-28] MEDS ORDERED: Metoclopramide 10mg/2ml Inj IVP PRN (19:30)
--- NOTE | 2018-07-28 19:30 | NUR ---
CASE MANAGEMENT: REVIEW 47/M PRESENTED TO ED FROM HOME CC: ABD PAIN SI: ABD PAIN . ENTERITIS T 97.0 HR 91 RR 14 BP 133/94 SAT 98% ROOM AIR WBC 3.2 H/H 13.2/31.1 TROPONIN I 0.015 IS: NS IVF BOLUS X1 MORPHINE IV X1 BENTYL PO X1 ZOFRAN IV X1 BACTRIM DS PO X1 DIFLUCAN PO X1 PATIENT ADMITTED TO TELEMETRY UNIT 07/27/2018 DCP: PATIENT IS FROM HOME
[2018-07-28] MEDS ORDERED: Miralax 17gm pkt ORAL PRN (20:00)
[2018-07-28] MEDS ORDERED: Heparin 5000 units/ml inj SUBQ SCH (21:00)
[2018-07-29] MEDS ORDERED: Isovue-300 100ml vial INJ PRN (04:45)
[2018-07-29] MEDS ORDERED: Bactrim-DS 1 tab ORAL SCH (09:00)
[2018-07-29] MEDS ORDERED: Pantoprazole Inj IV SCH (09:00)
[2018-07-29] MEDS ORDERED: Fluconazole 100mg tab ORAL SCH (09:00)
--- NOTE | 2018-07-30 07:34 | Discharge Summary ---
Discharge Summary Discharge Summary _ DATE OF ADMISSION: 07/27/2018 DATE OF DISCHARGE: 07/28/2018 DISCHARGED BY: Dr. Metcalf REASON FOR ADMISSION: 48 years old male with past medical history of HIV, left hip replacement, presented to emergency department complaining of lower abdominal pain for the past 2 weeks. Vital signs were stable. Laboratory workup revealed leukopenia with WBC 3.2 , stable hemoglobin hematocrit. Stable electrolytes and renal parameters . Glucose 133 . Stable LFT and lipase. Troponin negative. EKG revealed normal sinus rhythm no acute ischemic changes. Albumin 3.2. Urinalysis was unremarkable. CT of the abdomen and pelvis revealed no acute findings. 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 Left hip prosthesis. There was question about common bile duct dilatation. Patient was admitted for further management. CONSULTANTS: pulmonary Dr. Bustillos ID specialist Dr. Bianchi GI specialist Dr. Cartagena organisation and methods analyst Dr. Maldonado [facility]RSE: Patient was admitted to medical surgical floor and started on IV hydration. Pain management was addressed as needed. Symptomatic treatment provided. Abdominal ultrasound revealed no acute findings. Diet was advanced as tolerated. Per GI specialist , no GI procedure was recommended at this time. Infectious disease doctor seen and evaluated patient. ID specialist concluded, that current infection was unlikely, given no fevers, no leukocytosis , no diarrhea or constipation. HIV was diagnosed in 2002 , and the last CD4 count above 50 with unknown viral load. Patient was off ARVT medication for over 2 years. Patient followed up with outpatient clinic for HIV management ( [place] [facility] Patient was noted to have oral thrush, and patient was subsequently was started patient on fluconazole. Infectious disease doctor recommended continue Bactrim daily for prophylaxis and fluconazole for oral thrush. Chlamydia and gonorrhea in the urine were checked, negative. Patient clinically stabilized. Pain resolved . Patient was able to tolerate diet . Patient was stable for discharge. Due to rapid and unexpected improvement in patient condition patient was discharged in 1 day FINAL DIAGNOSES: Enteritis Abdominal pain, probably due to enteritis -resolved HIV status Anemia Hip pain DISCHARGE MEDICATIONS: See Medication Reconciliation list. DISCHARGE INSTRUCTIONS: Patient was discharged home . Follow up with primary care provider in one week. Follow-up as outpatient with HIV clinic. I have been assigned to dictate discharge summary for this account. I was not involved in the patient's management. Batool Shah NP Jul 30, 2018 07:34
== END 2018-07-28 17:48 | disposition home or self-care (01) | DRG 894 ==
LOC: EMR 05:01 → 2E 05:20 → EDBEDREQ 14:18 → 4E 07-28 14:17
DX: K52.9 Noninfective gastroenteritis and colitis, unspecified (principal); B20 Human immunodeficiency virus [HIV] disease; B37.0 Candidal stomatitis; D64.9 Anemia, unspecified; Z96.642 Presence of left artificial hip joint; M87.851 Other osteonecrosis, right femur; E83.51 Hypocalcemia
CPT/HCPCS: 36415; 74177; 76700; 80053; 81003; 83690; 83735; 84484; 85025; 85610; 85730; 86850; 86900; 86901; 87491; 87590; 93005; 96374; 96375; 99285; J2405

== ENCOUNTER 2018-09-14 13:10 | Emergency (ER) | payer MEDICAID ==
[~2018-09-14] VITALS: Ht 172.7 cm; Wt 77.1 kg
[~2018-09-14 13:10] MED LIST: BACTRIM-DS1 EA ORAL; DIFLUCAN100 MG ORAL
[2018-09-14 13:49] VITALS: BP 116/78
[2018-09-14] MEDS ORDERED: Albuterol ud Inhalation HHN ONE (14:15)
[2018-09-14] MEDS ORDERED: Albuterol ud Inhalation ONE (14:36)
[2018-09-14 15:07] LABS: APPEARANCE,URINE CLEAR; BILIRUBIN, URINE NEGATIVE (NEGATIVE); GLUCOSE, URINE (UA) NEGATIVE (NEGATIVE); HEMATOCRIT 27.7 % (42.0-52.0); KETONES,URINE NEGATIVE (NEGATIVE); LEUKOCYTE ESTERASE ,URINE NEGATIVE (NEGATIVE); MEAN CORPUSCULAR VOLUME 90 FL (80-99); NITRITE,URINE NEGATIVE (NEGATIVE); PH,URINE 5 (4.5-8.0); PLATELET COUNT 121 K/UL (150-450); PROTEIN,URINE 1+ (NEGATIVE); RED BLOOD COUNT 3.09 M/UL (4.70-6.10); UROBILINOGEN,URINE 1 MG/DL (0.0-1.0); WHITE BLOOD COUNT 2.8 K/UL (4.8-10.8)
[2018-09-14 15:12] LABS: COLOR,URINE YELLOW
[2018-09-14 15:19] LABS: ANION GAP 12 mmol/L (5-15); BLOOD UREA NITROGEN 28 mg/dL (7-18); CALCIUM 8.4 MG/DL (8.5-10.1); CARBON DIOXIDE 24 MMOL/L (21-32); CHLORIDE 102 MMOL/L (98-107); CREATININE 1.1 MG/DL (0.55-1.30); POTASSIUM 3.9 MMOL/L (3.5-5.1); SODIUM 138 MMOL/L (136-145)
[2018-09-14 15:23] LABS: ALANINE AMINOTRANSFERASE 37 U/L (12-78); ALBUMIN 3.2 G/DL (3.4-5.0); ALBUMIN/GLOBULIN RATIO 0.6 (1.0-2.7); ALKALINE PHOSPHATASE 137 U/L (46-116); ASPARTATE AMINO TRANSFERASE 59 U/L (15-37); BILIRUBIN,TOTAL 0.4 MG/DL (0.2-1.0)
[2018-09-14] MEDS ORDERED: Ketorolac 30mg Inj IV ONE (16:30)
--- NOTE | 2018-09-14 17:02 | Emergency Room Report ---
History of Present Illness General Chief Complaint: Headache Source: Patient Present Illness HPI 48-year-old male presents to the emergency department complaining of 10 out of 10 in severity pain to the left side of his head that is throbbing in nature and he states is pulsatile it is exacerbated upon opening and closing his mouth. Patient reports pain in the temporal and parietal area as well as just in front of the left ear. Patient denies dental pain or recent dental procedures. Patient also reports feeling "out of it more than normal. Patient also stating that he has been having seeing and feeling short of breath with history of smoking bronchitis. Patient also reports has a history of HIV he just began taking his medications again after finding out in July that his viral load was "off the charts ". Patient reports he has very low CD4 count however he is up-to-date with vaccinations and sees an infectious disease specialist regarding his condition. Patient reports some increased fatigue denies fevers but reports pain. Patient also states he has ongoing neurological problems such as weakness of nerve pain times several years and states that he is continuing to have the symptoms. Denies CP or palpitations. Denies dizziness, sudden onset of ARCHIBALD or N/V. No other Aggravating or relieving factors at this time. Allergies: Coded Allergies: No Known Allergies (Unverified , 07/27/18) Patient History Past Medical History: see triage record, HIV Past Surgical History: unable to obtain Pertinent Family History: none Social History: Reports: smoking Reviewed Nursing Documentation: PMH: Agreed; PSxH: Agreed Nursing Documentation-PMH Past Medical History: No History, Except For Hx Cancer: No Hx Gastrointestinal Problems: Yes - abdominal pain Hx Neurological Problems: No - LEFT Hip replacement Review of Systems All Other Systems: negative except mentioned in HPI Physical Exam Vital Signs Date Time Temp Pulse Resp B/P (MAP) Pulse Ox O2 Delivery O2 Flow Rate FiO2 09/14/18 13:24 98.4 102 16 116/78 97 Room Air 09/14/18 14:39 21 Sp02 EP Interpretation: reviewed, normal General Appearance: alert, GCS 15, non-toxic, mild distress Head: normocephalic, atraumatic Eyes: bilateral eye normal inspection, bilateral eye PERRL, bilateral eye EOMI ENT: hearing grossly normal, normal voice, TMs + canals normal, uvula midline, other - TTP to the left side of the face in the preauricular area. visible subluxation of the left TMJ with opening and closing the mouth. Neck: full range of motion, no meningismus Respiratory: chest non-tender, lungs clear, normal breath sounds, no respiratory distress, speaking full sentences, wheezing - scant diffuse wheezes Cardiovascular #1: regular rate, rhythm, no edema, normal capillary refill Gastrointestinal: non tender, soft Musculoskeletal: back normal, gait/station normal, normal range of motion, non- tender Neurologic: alert, oriented x3, responsive, motor strength/tone normal, sensory intact, speech normal, other - no nystagmus, grossly normal Psychiatric: judgement/insight normal Skin: normal color, no rash, warm/dry, well hydrated Lymphatic: no adenopathy Medical Decision Making PA Attestation Dr. Omer is my supervising Physician whom patient management has been discussed with. Homeless Attestation I, The treating provider, Domenica SORENSON, has assessed and agrees that patient is medically stable for discharge to an outpatient disposition. Diagnostic Impression: Primary Impression: Headache Qualified Codes: R51 - Headache Additional Impression: Trigeminal neuralgia of left side of face ER Course 39-year-old male presents to the emergency department complaining of 8 out of 10 in severity muscle pain and cramping to the bilateral hands, forearms and on occasion radiation up into the shoulder/bilateral neck area. 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 Patient denies appreciable trauma or fall. Patient reports on occasion some numbness and tingling in the hands only. Patient denies previous injuries to these extremities or symptoms consistent with these from the past. He denies trauma or fall. Denies significant past medical history and reports that he takes vitamins regularly and feels that he is of normal nutritional status. Denies gross motor weakness. Ddx considered but are not limited to migraine, SAH, Pseudomotor Cerebri, Mass lesion, Cluster ARCHIBALD, Tension ARCHIBALD, Post lumbar puncture ARCHIBALD, PCP , trigeminal neuralgia, TMJ just to name a few. Vital signs: are WNL, pt. is afebrile H&PE are most consistent with trigeminal neuralgia will r/o infectious mass lesion ORDERS: -CT Head No Contrast -CBC: pancytopenia -CMP: unremarkable , elevated alk. phos. -UA: unremarkable ED INTERVENTIONS: -1 Liter NS Bolus -Toradol IV -Compazine IV -I do not identify an emergent condition at this time. With current presentation , pt. is stable for close outpatient follow up and conservative treatment. D/ w pt. to return promptly to ED with worsening or new symptoms.- Pt. verbalizes' understanding and agreement with proposed treatment plan.proposed treatment plan. DISCHARGE: At this time pt. is stable for d/c to home. Will provide printed patient care instructions, and any necessary prescriptions. Care plan and follow up instructions have been discussed with the patient prior to discharge. Labs Test 09/14/18 14:45 White Blood Count 2.8 K/UL (4.8-10.8) Red Blood Count 3.09 M/UL (4.70-6.10) Hemoglobin 10.0 G/DL (14.2-18.0) Hematocrit 27.7 % (42.0-52.0) Mean Corpuscular Volume 90 FL (80-99) Mean Corpuscular Hemoglobin 32.3 PG (27.0-31.0) Mean Corpuscular Hemoglobin Concent 36.0 G/DL (32.0-36.0) Red Cell Distribution Width 13.0 % (11.6-14.8) Platelet Count 121 K/UL (150-450) Mean Platelet Volume 5.8 FL (6.5-10.1) Neutrophils (%) (Auto) % (45.0-75.0) Lymphocytes (%) (Auto) % (20.0-45.0) Monocytes (%) (Auto) % (1.0-10.0) Eosinophils (%) (Auto) % (0.0-3.0) Basophils (%) (Auto) % (0.0-2.0) Differential Total Cells Counted 100 Neutrophils % (Manual) 47 % (45-75) Lymphocytes % (Manual) 33 % (20-45) Monocytes % (Manual) 19 % (1-10) Eosinophils % (Manual) 0 % (0-3) Basophils % (Manual) 1 % (0-2) Band Neutrophils 0 % (0-8) Platelet Estimate Decreased Platelet Morphology Normal Target Cells 1+ Urine Color Yellow Urine Appearance Clear Urine pH 5 (4.5-8.0) Urine Specific [place] 1.020 (1.005-1.035) Urine Protein 1+ (NEGATIVE) Urine Glucose (UA) Negative (NEGATIVE) Urine Ketones Negative (NEGATIVE) Urine Blood Negative (NEGATIVE) Urine Nitrite Negative (NEGATIVE) Urine Bilirubin Negative (NEGATIVE) Urine Urobilinogen 1 MG/DL (0.0-1.0) Urine Leukocyte Esterase Negative (NEGATIVE) Urine RBC 0-2 /HPF (0 - 0) Urine WBC 2-4 /HPF (0 - 0) Urine Squamous Epithelial Cells Occasional /LPF Urine Amorphous Sediment Few /LPF (NONE) Urine Bacteria Few /HPF (NONE) Sodium Level 138 MMOL/L (136-145) Potassium Level 3.9 MMOL/L (3.5-5.1) Chloride Level 102 MMOL/L (98-107) Carbon Dioxide Level 24 MMOL/L (21-32) Anion Gap 12 mmol/L (5-15) Blood Urea Nitrogen 28 mg/dL (7-18) Creatinine 1.1 MG/DL (0.55-1.30) Estimat Glomerular Filtration Rate > 60 mL/min (>60) Glucose Level 88 MG/DL (74-106) Calcium Level 8.4 MG/DL (8.5-10.1) Total Bilirubin 0.4 MG/DL (0.2-1.0) Aspartate Amino Transf (AST/SGOT) 59 U/L (15-37) Alanine Aminotransferase (ALT/SGPT) 37 U/L (12-78) Alkaline Phosphatase 137 U/L (46-116) Total Protein 8.9 G/DL (6.4-8.2) Albumin 3.2 G/DL (3.4-5.0) Globulin 5.7 g/dL Albumin/Globulin Ratio 0.6 (1.0-2.7) Chest X-Ray Diagnostic Results Chest X-Ray Diagnostic Results : Chest X-Ray Ordered: Yes # of Views/Limited/Complete: 1 View Indication: Chest Pain EP Interpretation: Yes PA Xray: Interpretation reviewed, by supervising MD, and agrees with findings. Interpretation: no consolidation, no effusion, no pneumothorax, no acute cardiopulmonary disease Impression: No acute disease Electronically Signed by: Domenica Valdes PA-C CT/MRI/US Diagnostic Results CT/MRI/US Diagnostic Results : Imaging Test Ordered: CT head No contrast Impression No evidence of acute fracture, hemorrhage, or intracranial process ---Per official radiology report- Please see report for specific details. Last Vital Signs Date Time Temp Pulse Resp B/P (MAP) Pulse Ox O2 Delivery O2 Flow Rate FiO2 09/14/18 14:39 89 20 98 Room Air 21 09/14/18 13:49 98.4 116/78 Disposition: HOME, SELF-CARE Condition: Stable Scripts Albuterol Sulfate* (ALBUTEROL SULFATE MDI*) 8.5 Gm Hfa.aer.ad 2 PUFF INH Q4H, #1 INH 0 Refills Prov: Domenica Valdes 09/14/18 Gabapentin* (GABAPENTIN*) 100 Mg Capsule 100 MG ORAL THREE TIMES A DAY for 4 Days, #12 CAP Prov: Domenica Valdes 09/14/18 Prochlorperazine (COMPAZINE*) 10 Mg Tablet 10 MG ORAL Q6H PRN for For Headache, #20 TAB Prov: Domenica Valdes 09/14/18 Referrals: [facility]ERR[facility] (PCP) Patient Instructions: Trigeminal Neuralgia, General Headache Without Cause Additional Instructions: Take medications as directed. Follow up with a Primary Care Provider in 3-5 days, even if your symptoms have resolved. --Please review list of primary care clinics, if you do not already have a primary care provider Return sooner to ED if new symptoms occur, or current symptoms become worse. - Please note that this Emergency Department Report was dictated using [employer] secretary/transcriptionist technology software, occasionally this can lead to erroneous entry secondary to interpretation by the dictation equipment. Domenica Valdes Sep 14, 2018 17:02
[2018-09-14] MEDS ORDERED: ALBUTEROL SULF8.5 GM INH (17:07)
[2018-09-14] MEDS ORDERED: COMPAZINE10 MG ORAL (17:07)
[2018-09-14] MEDS ORDERED: GABAPENTIN100 MG ORAL (17:07)
[2018-09-14 17:41] VITALS: BP 119/78
--- NOTE | 2018-09-14 17:42 | NUR ---
ER DISCHARGE NOTE:pt. was cleared for d/c by ER PA Patient is cleared to be discharged per ERMD, pt is aox4, on room air, with stable vital signs. pt was given dc and prescription instructions, pt was able to verbalize understanding, pt id band and iv site removed without complications. pt is able to ambulate with steady gait. pt took all belongings.
[2018-09-14 17:43] VITALS: BP 119/78
--- NOTE | 2018-09-15 19:14 | Diagnostic Imaging Report ---
Indication: Headache Technique: Contiguous 5 mm thick transaxial imaging of the head obtained in a Siemens Sensation [address] scanner. Soft tissue and bone windows generated. Automatic Exposure Control was utilized. Total Dose length Product (DLP): [address] Dose Index Volume (CTDIvol): 0.15, 70.38 mGy Comparison: none Findings: There is mild prominence of the ventricles, basal cisterns, and cerebral sulci consistent with atrophy. Mild, nonspecific, white matter hypoattenuation is noted throughout the brain consistent with chronic small vessel disease. There is no midline shift, edema, acute hemorrhage, mass effect, or abnormal extra-axial fluid collections. Bones and extra osseous soft tissues are unremarkable. Impression: No acute intracranial bleed, mass effect or edema. Mild atrophy of the brain. Nonspecific white matter hypoattenuation probably due to chronic small vessel disease. The CT scanner at [facility] is accredited by the [employer] and the scans are performed using dose optimization techniques as appropriate to a performed exam including Automatic Exposure control.
--- NOTE | 2018-09-15 19:15 | Diagnostic Imaging Report ---
Indication: Dyspnea Comparison: None A single view chest radiograph was obtained. Findings: Cardiomediastinal appearance is within normal limits for age. The lungs are clear. Pulmonary vascularity is appropriate. The diaphragmatic contour is smooth and costophrenic angles are sharp. No pleural effusions are identified. The bones are unremarkable. Impression: No acute findings
== END 2018-09-14 17:40 | disposition home or self-care (01) ==
LOC: EMR 13:49
DX: R51 Headache (principal); G50.0 Trigeminal neuralgia; Z96.642 Presence of left artificial hip joint
CPT/HCPCS: 36415; 70450; 71045; 80053; 81003; 85007; 85025; 94640; 94664; 96361; 96374; 96375; 99284; J0780; J1885